=== PATIENT | female | born 1940 | race African-American/Black ===

== ENCOUNTER 2019-03-28 13:30 | Inpatient (IN) ==
[2019-03-28] MEDS ORDERED: ZOFRAN IV PRN (18:13)
[2019-03-28] MEDS ORDERED: ROCEPHIN 2 GM in NS 50 ML IV ONE (18:20)
[2019-03-28] MEDS ORDERED: VANCOMYCIN IV PER PHARMACY MISC SCH (18:30)
[2019-03-28] MEDS ORDERED: OFIRMEV 1000 MG/ISOTONIC SOLN 1,000 MG/100 ML BOTTLE IV PRN (18:37)
[2019-03-28] MEDS: SOLU-MEDROL IV SCH (18:48)
[2019-03-28 19:42] LABS: BASO# 0.11 X1000 (0.0-0.2); BASO% 0.5 % (0.0-0.8); EOS# 0.11 X1000 (0.0-0.7); EOS% 0.5 % (0.0-10.0); HEMATOCRIT 26.7 % (37.0-47.0); HEMOGLOBIN 8.5 g/dL (12.0-16.0); IMM GRAN% 0.9 % (0.0-0.5); LYMPH# 2.21 X1000 (1.2-3.4); LYMPH% 10.1 % (20.5-51.1); MCH 30.2 PG (27-31); MCHC 31.8 g/dL (33-37); MONO# 2.25 X1000 (0.11-0.59); MONO% 10.3 % (1.7-9.3); MPV 10.6 FL (7.4-10.4); NEUT# 17.01 X1000 (1.4-6.5); NEUT% 77.7 % (42.2-75.2); PLT 459 X1000 (130-400); RBC 2.81 XMIL (4.2-5.4); RDW 16.1 % (11.5-14.5); WBC 21.89 X1000 (4.8-10.8)
[2019-03-28 19:51] LABS: BANDS 1 % (0-1); EOS 2 % (1-10); LARGE PLATELETS OCCASIONAL; LYMPHS 6 % (21-51); MONO 5 % (1-9); SEGS 85 % (42-75); TARGET CELLS OCCASIONAL
[2019-03-28 20:19] LABS: AGAP 9; BUN 12 mg/dL (8-22); CALCIUM 8.4 mg/dL (8.8-10.2); CHLORIDE 97 mmol/L (98-107); COSMO 286; CREATININE 0.6 mg/dL (0.5-0.9); ESTIMATED GFR > 60; GLUCOSE 197 mg/dL (70-104); POTASSIUM 4.6 mmol/L (3.5-5.1); SODIUM 141 mmol/L (136-145); TCO2 35 mmol/L (25-35)
[2019-03-28 20:40] LABS: SED RATE 74 mm/hr (0-20)
[2019-03-28] MEDS ORDERED: XARELTO PO SCH (21:00)
[2019-03-28] MEDS: NEURONTIN PO SCH (21:58)
[2019-03-28] MEDS ORDERED: VANCOMYCIN 1,200 MG in NS 250 ML IV ONE (22:00)
--- NOTE | 2019-03-28 22:16 | Diag Imaging Result Doc PS360 ---
CT ABDOMEN/PELVIS W/WO CONTRAS - 03/28/2019 INDICATION: right side abdome pain. r/o kidney stones vs pyelo COMPARISON: 09/10/2018 FINDINGS: There is severe consolidation of the right lower lobe. There is a small infiltrate in the right middle lobe and left lower lobe. There is a small right pleural effusion. Heart size is grossly normal. No radiodense renal stones or urinary obstruction. There are severe diffuse parenchymal calcifications of the pancreas indicating severe chronic pancreatitis. There is also severe dilation of the main pancreatic duct containing numerous stones. There is moderate constipation. There is severe diverticulosis of the colon. No bowel obstruction or inflammation. Shoemaker catheter in the urinary bladder. Rectum is normal. There are some calcified degenerating fibroids in the uterus. There are moderate degenerative changes of the spine. No acute or suspicious bony lesion. IMPRESSION: 1. Severe chronic pancreatitis. 2. Constipation. Severe diverticulosis coli. 3. Bibasilar infiltrates. Small right pleural effusion. This exam was performed using automated exposure control, adjustment of mA or kV according to patient size, and/or use of iterative reconstruction technique Electronically signed by Jordan Solano 03/28/2019 10:13 PM
--- NOTE | 2019-03-28 22:19 | Diag Imaging Result Doc PS360 ---
CT ANGIOGRAM HEAD - 03/28/2019 INDICATION: persistent headache. R/o Aneurysm TECHNIQUE: Axial CT images were obtained after administering intravenous contrast. Three-dimensional angiographic images were generated. COMPARISON: Head CT 03/26/2019 FINDINGS: There is extremely severe vascular calcification of the carotid siphons bilaterally. This causes moderate stenosis bilaterally, narrowed by about 50%. No aneurysm. No intracranial hemorrhage. The cerebral and cerebellar arteries appear normal. No significant vascular calcification here. The vertebrobasilar system is normal. IMPRESSION: Severe vascular calcification of the carotid siphons bilaterally with moderate stenosis. No aneurysm or acute abnormality. This exam was performed using automated exposure control, adjustment of mA or kV according to patient size, and/or use of iterative reconstruction technique Electronically signed by Jordan Solano 03/28/2019 10:17 PM
--- NOTE | 2019-03-28 23:50 | HISTORY AND PHYSICAL ---
PRESENTING COMPLAINT: Headaches. HISTORY OF PRESENTING COMPLAINT: Ms. Novoa is a 78-year-old female who is known to have a history of COPD, on home oxygen 3 L. She normally follows up with Dr. Gilbert. She does not follow up with any foreign exchange services manager. She is also known to have congestive heart failure. Ms. Novoa was admitted to [facility] on 03/20/2019, mainly because of shortness of breath, congestion and some urinary symptoms and weakness. She was found to be in COPD exacerbation, and she was admitted and started on standard of care. Per documentation from [facility], she was initially started on IV antibiotics, steroids and hydration. Subsequently, imaging studies were done including a CAT scan of the lungs, showing pneumonia. At the same time there was mention of a right lower lobe PE. A CAT scan of the head showed chronic maxillary and sphenoid sinusitis. During the hospital course at [facility], the sputum came back positive for MRSA. She was treated with vancomycin for MRSA sinusitis, MRSA pneumonia and PE. I understand she was doing a little better until 2 days later. She started having remarkable headaches to where the attending physician over there, Dr. Hills, was concerned that this could be meningitis; however, because she was started on an anticoagulant he was not comfortable taking care of her at that facility, so he decided to transfer her for higher level of care. PAST MEDICAL HISTORY: 1. COPD, on home oxygen. 2. Congestive heart failure. PAST SURGICAL HISTORY: Left total knee replacement. FAMILY HISTORY: Unremarkable. SOCIAL HISTORY: The patient is . She quit smoking about 6 years ago, but she smoked for more than 40 years. She denies any alcohol or street drug use. The patient lives with her daughter and has a very good support system. REVIEW OF SYSTEMS: At this point Ms. Novoa complains of some mild shortness of breath and headaches. Ms. Novoa refers that she has been having headaches for a very long time. Usually she gets 1 episode on daily basis, occasionally 2. Usually it will subside with Tylenol or when she goes to rest. She refers that the headache is usually frontal in location and is pounding. It is usually associated with nauseation and phonophobia with photophobia. She denies any chest pain. She denies any diarrhea. She denies any urinary symptoms at this point. PHYSICAL EXAMINATION: VITAL SIGNS: Her current vital signs have still not been done at the time of dictation. She, however, looks very stable in bed. GENERAL: Ms. Novoa is a 78-year-old elderly female. She is in bed. She does not seem to be in any cardiopulmonary distress. She is still on nasal cannula for supplemental oxygen. HEENT: Mucosa is pink and moist. Anicteric. Acyanotic. Head was normocephalic and it was atraumatic. NECK: Supple. There is no neck rigidity. There is no JVD. RESPIRATORY: There is good air entry bilaterally. There is some faint distant wheezing, but no crackles and no rhonchi. There is no accessory muscle use. CARDIOVASCULAR: Regular rate and rhythm. No murmurs, no rubs, no gallops. Eden beat is at 5th intercostal space, midclavicular line. GASTROINTESTINAL: Abdomen is soft. There is some tenderness mainly to the right upper quadrant and epigastrium and the right flank. There is no rebound or guarding. There is no rebound tenderness. There is minimum guarding. Bowel sounds are present but there is no hepatosplenomegaly. I did not see any scars on the anterior abdominal wall. EXTREMITIES: No pedal edema. Distal pulses are present. GENITOURINARY: There is a Shoemaker catheter in place. CENTRAL NERVOUS SYSTEM: The patient is awake, alert and oriented x4. She is able to move both lower extremities against gravity, but she is remarkably weak. Sensation seems to be intact. She has some atrophy and some tenderness mobilizing the knee joint from longstanding osteoarthritis. Her cranial nerves 2-12 have been grossly examined. They all seem to be intact. She has no teeth, but she is able to stick out her tongue and move the tongue in all directions. Her pupils are equal and they are reactive to light. I do not see any visual field defects. There is mild tenderness palpating the scalp on the frontal region. I do not think there was any remarkable tenderness over the trigeminal area. LABORATORY DATA: None at the time of dictation; however, a summary of the laboratory data from [facility] on 03/23 shows white cell count was about 18.84, hemoglobin was 8.8, platelet count was 460,000. The renal function test was normal. Creatinine was 0.7. Other electrolytes were all within normal range. The urinalysis was negative. Urine culture was negative. Stool analysis was negative. DIAGNOSTIC DATA: Imaging studies from the outside facility seem to suggest chronic maxillary and sphenoid sinusitis as well as mild PE, severe COPD and right upper lobe possible pneumonia. ASSESSMENT: Ms. Novoa, who was admitted to [facility] from the 16th of this month to present, being treated for pneumonia, sinusitis and pulmonary embolism, got worsening of chronic headache and there was concern of meningitis, so the patient was transferred here for higher level of care. 1. [id number] hypoxemic respiratory failure. This seems to have improved during the course at the other hospital. The patient is back on 3 L supplemental oxygen. She seems to be saturating well. 2. Methicillin-resistant Staphylococcus aureus sinusitis with pneumonia. The patient was treated with vancomycin. We are going to continue with that. 3. Pulmonary emboli. We will continue with her anticoagulant. Once her followup scans over here, especially the brain scans are negative. 4. Headaches. The patient seems to have chronic headaches, which some of the features seem to suggest migraine. Unfortunately it looks like this has gotten worse, so we are going to repeat a CAT scan with angiogram to rule out any aneurysm. We will get Neurology to evaluate her on Sunday. The patient does not seem to have any nuchal rigidity. She is not febrile. She does not have any altered mentation. I doubt if she does have meningitis, because she was actually being treated with antimicrobials which we are going to continue anyway. 5. Abdominal pain, more so to the right upper quadrant and with right costal angle tenderness. We will get a CAT scan of the abdomen to rule out any intra-abdominal pathology. 6. We will give further recommendations as results of laboratory data as well as imaging data become available. cc: Bernardo Cantrell MD
[2019-03-29] MEDS: TYLENOL PO PRN ×3 (00:27→11:52)
[2019-03-29] MEDS: SOLU-MEDROL IV SCH ×3 (03:57→22:16)
[2019-03-29 08:33] LABS: INR 1.38; PROTIME 17.3 Seconds (11.0-16.0)
[2019-03-29 08:41] LABS: BASO# 0.08 X1000 (0.0-0.2); BASO% 0.4 % (0.0-0.8); HEMOGLOBIN 9.6 g/dL (12.0-16.0); IMM GRAN# 0.17 X1000 (0.0-0.04); IMM GRAN% 0.9 % (0.0-0.5); LYMPH# 0.55 X1000 (1.2-3.4); LYMPH% 2.9 % (20.5-51.1); MCV 96.8 FL (81-99); MONO# 0.33 X1000 (0.11-0.59); MONO% 1.7 % (1.7-9.3); MPV 10.9 FL (7.4-10.4); NEUT# 18.01 X1000 (1.4-6.5); NEUT% 94.1 % (42.2-75.2); PLT 452 X1000 (130-400); RDW 16.8 % (11.5-14.5); WBC 19.14 X1000 (4.8-10.8)
[2019-03-29 09:18] LABS: ANISOCYTOSIS 2+; LYMPHS 3 % (21-51); MONO 2 % (1-9); SEGS 95 % (42-75)
[2019-03-29 09:19] LABS: LARGE PLATELETS 1+
[2019-03-29 09:20] LABS: AGAP 11; ALB/GLOB RATIO 0.7; ALBUMIN 2.4 g/dL (3.5-5.0); ALKALINE PHOSPHATASE 93 U/L (32-104); BUN 12 mg/dL (8-22); CALCIUM 8.6 mg/dL (8.8-10.2); CHLORIDE 100 mmol/L (98-107); COSMO 285; CREATININE 0.6 mg/dL (0.5-0.9); ESTIMATED GFR > 60; GLUCOSE 137 mg/dL (70-104); GOT 19 U/L (10-30); GPT 11 U/L (10-36); MAGNESIUM 1.6 mg/dL (1.5-2.7); POTASSIUM 5.8 mmol/L (3.5-5.1); SODIUM 142 mmol/L (136-145); TCO2 31 mmol/L (25-35); TOTAL BILIRUBIN 0.37 mg/dL (0.20-1.00); TOTAL PROTEIN 5.9 g/dL (6.3-8.3)
[2019-03-29] MEDS: CARDIZEM CD PO SCH (09:48)
[2019-03-29] MEDS: CRESTOR PO SCH (09:48)
[2019-03-29] MEDS: PERICOLACE PO SCH ×2 (09:48→22:17)
[2019-03-29] MEDS: ROCEPHIN 2 GM in NS 50 ML IV SCH (09:48)
[2019-03-29] MEDS: XARELTO PO SCH ×2 (09:49→22:17)
[2019-03-29] MEDS ORDERED: ALBUTEROL 0.5% INH CONC FOR HYPERKALEMIA INH ONE (09:58)
[2019-03-29] MEDS ORDERED: LOKELMA POWDER PACKET PO ONE (09:59)
[2019-03-29] MEDS: CREON PO SCH ×2 (11:52→16:30)
--- NOTE | 2019-03-29 12:01 | PROGRESS NOTE ---
DATE: 03/29/2019 SUBJECTIVE: This morning Ms. Novoa refers to be doing a lot better. She says she has just had minimum headache. She had very good sleep and she ate well last night. Her son was at the bedside at the time of the encounter. OBJECTIVE: Vital signs: Blood pressure is 136/73, pulse of 77, respiration is 19, temperature 98.9 degrees. Patient is saturating 97%. General: Ms. Novoa is a 78-year-old elderly female. She is in bed, no distress. HEENT: Mucosa is pink and moist. Anicteric. Acyanotic. Neck: Supple. No JVD. Respiratory System: There is good air entry bilateral. I did not hear any wheezing today. No crackles. Cardiovascular: Regular rate and rhythm. No murmurs, no rubs, no gallops. GI: Abdomen is soft, minimally tender in the mid epigastrium but otherwise no rebound, no guarding. There is no hepatosplenomegaly. Extremities: No pedal edema. BRICK EXTRUDER OPERATOR: Patient is awake, alert, and oriented. There is no focal deficit. No nuchal rigidity. LABORATORY DATA: Still pending at the time of the dictation. Patient's C-reactive protein was elevated as well as her ESR was elevated yesterday. MEDICATIONS: Have all been reviewed. A CTA which was done yesterday shows severe vascular calcification of the carotid siphons bilaterally with moderate stenosis, but there is no aneurysm or acute abnormality. A CT scan of the abdomen and pelvis shows severe chronic pancreatitis, constipation, severe diverticulosis, bibasilar infiltrate, small right pleural effusion. ASSESSMENT: 1. Acute on chronic hypoxemic respiratory failure improved. 2. MRSA pneumonia. The patient continues to be on vancomycin. 3. Maxillary and sphenoid sinusitis. We will continue with the current antimicrobial coverage. 4. Pulmonary emboli. We started the patient on her Xarelto. 5. Headaches, questionable migraine with unremarkable CT scan. Patient will undergo an MRI on Sunday and also get Neurology to evaluate her. 6. Abdominal pain, most likely a combination of severe constipation and chronic pancreatitis. 7. Severe chronic pancreatitis on imaging. The patient also refers to have chronic diarrhea with 4 bowel movements on almost a daily basis, occasionally is normal, sometimes diarrhea. She did have extensive history of alcohol use in the past, but stopped alcohol use 6 years ago. We presume the chronic pancreatitis is alcohol induced. The patient will be started on Creon. 8. Severe constipation. We will start the patient on bowel regimen. 9. Bilateral carotid stenosis. As per the CTA of the head this seems to be severe. We will get ultrasound of the carotids and then go from there. I will also start the patient on statin and aspirin. cc: Bernardo Cantrell MD
[2019-03-29] MEDS ORDERED: MILK OF MAGNESIA PO ONE (14:53)
[2019-03-29] MEDS: NEURONTIN PO SCH (22:16)
[2019-03-30] MEDS: SOLU-MEDROL IV SCH ×2 (03:27→13:47)
[2019-03-30 07:33] LABS: BASO# 0.02 X1000 (0.0-0.2); BASO% 0.1 % (0.0-0.8); HEMATOCRIT 26.1 % (37.0-47.0); HEMOGLOBIN 8.2 g/dL (12.0-16.0); IMM GRAN# 0.13 X1000 (0.0-0.04); IMM GRAN% 0.5 % (0.0-0.5); LYMPH# 0.64 X1000 (1.2-3.4); LYMPH% 2.3 % (20.5-51.1); MCH 29.7 PG (27-31); MCHC 31.4 g/dL (33-37); MCV 94.6 FL (81-99); MONO# 0.96 X1000 (0.11-0.59); MONO% 3.4 % (1.7-9.3); MPV 10.9 FL (7.4-10.4); NEUT# 26.41 X1000 (1.4-6.5); NEUT% 93.7 % (42.2-75.2); PLT 537 X1000 (130-400); RBC 2.76 XMIL (4.2-5.4); RDW 16.5 % (11.5-14.5); WBC 28.16 X1000 (4.8-10.8)
[2019-03-30] MEDS: TYLENOL PO PRN (07:39)
[2019-03-30 08:08] LABS: AGAP 10; ALBUMIN 2.3 g/dL (3.5-5.0); BUN 25 mg/dL (8-22); CALCIUM 8.7 mg/dL (8.8-10.2); CHLORIDE 97 mmol/L (98-107); COSMO 292; CREATININE 0.7 mg/dL (0.5-0.9); ESTIMATED GFR > 60; GLUCOSE 211 mg/dL (70-104); MAGNESIUM 2.2 mg/dL (1.5-2.7); PHOSPHORUS 2.8 mg/dL (2.7-4.5); POTASSIUM 4.7 mmol/L (3.5-5.1); SODIUM 141 mmol/L (136-145); TCO2 34 mmol/L (25-35)
[2019-03-30] MEDS: CARDIZEM CD PO SCH (08:41)
[2019-03-30] MEDS: CREON PO SCH ×3 (08:41→17:25)
[2019-03-30] MEDS: ROCEPHIN 2 GM in NS 50 ML IV SCH (08:41)
[2019-03-30] MEDS: PERICOLACE PO SCH ×2 (08:41→20:18)
[2019-03-30] MEDS: XARELTO PO SCH ×2 (08:41→20:18)
[2019-03-30] MEDS: CRESTOR PO SCH (08:41)
[2019-03-30] MEDS: LACTULOSE PO SCH ×2 (11:05→20:17)
[2019-03-30] MEDS: VANCOMYCIN 1 GM/NS 1 GM/250 ML IVPB IV SCH (11:05)
--- NOTE | 2019-03-30 11:13 | PROGRESS NOTE ---
DATE: 03/30/2019 SUBJECTIVE: This morning, Ms. Novoa refers to be doing okay. Still has ongoing headache, which is on and off. However, she says she slept pretty well last night. Ms. Novoa also continues to complain of abdominal pain and has not had a bowel movement. She said her back is also hurting her. OBJECTIVE: Vital Signs: Blood pressure is 116/50, pulse of 84, respirations are 20, temperature is 98.5 degrees, the patient is saturating 94%. General Examination: Ms. Novoa is a 78-year- old, -Citizen Of [place] female. She is in bed. No cardiopulmonary distress. HEENT: Mucosa is pink and moist. Anicteric. Acyanotic. Neck: Supple. Chest: There is good air entry bilaterally. No crepitations. No rhonchi. Cardiovascular: Regular rate and rhythm. No murmurs, no rubs, no gallops. GI: Abdomen was soft. Minimally tender in the lower abdomen but no guarding, no rebound. Extremities: No pedal edema. SECURITY REPRESENTATIVE: The patient is awake, alert, and oriented. There was no focal deficit. The patient has no nuchal rigidity. Musculoskeletal: The patient has mild tenderness around the paraspinal muscles on the lumbar spine. Laboratory Data: WBC is 28.16, hemoglobin is 8.3, platelet count of 537,000. Chemistry is also reviewed and, for the most part, unremarkable. Glucose is slightly elevated, I guess because of the steroids. ASSESSMENT: 1. Acute on chronic hypoxemic respiratory failure. This is improved. Patient is back to 2 L of supplemental oxygen. 2. Methicillin-resistant Staphylococcus aureus pneumonia with sinusitis. The patient is on vancomycin. 3. Pulmonary emboli. The patient is on Xarelto. 4. Persistent headaches with features suggestive of possible migraine. A CT scan of the brain with contrast was unremarkable. Patient is pending an MRI and a neurology evaluation. 5. Abdominal pain secondary to severe constipation and chronic pancreatitis. 6. Alcohol-induced chronic pancreatitis. The patient is on Creon. 7. Bilateral carotid stenosis as per CTA. Ultrasound of the carotids has been done. We are pending the results. 8. Diverticulosis found on imaging. PLAN: In general, Ms. Novoa refers to be doing fairly okay but still has some pains, especially in the abdomen. She has not had any bowel movement so we are going to address this with the regimen. We will go up today. We are pending an MRI of the brain tomorrow and neurology consult for the persistent headaches. cc: Bernardo Cantrell MD
[2019-03-30] MEDS: NEURONTIN PO SCH (20:18)
[2019-03-30] MEDS ORDERED: VANCOMYCIN 1 GM/NS 1 GM/250 ML IVPB IV SCH (22:00)
[2019-03-31 07:29] LABS: BASO# 0.02 X1000 (0.0-0.2); BASO% 0.1 % (0.0-0.8); HEMATOCRIT 25.8 % (37.0-47.0); IMM GRAN# 0.23 X1000 (0.0-0.04); IMM GRAN% 0.9 % (0.0-0.5); LYMPH# 1.08 X1000 (1.2-3.4); LYMPH% 4.3 % (20.5-51.1); MCH 29.7 PG (27-31); MCV 95.9 FL (81-99); MONO# 1.25 X1000 (0.11-0.59); NEUT# 22.61 X1000 (1.4-6.5); NEUT% 89.7 % (42.2-75.2); PLT 504 X1000 (130-400); RBC 2.69 XMIL (4.2-5.4); RDW 16.6 % (11.5-14.5); WBC 25.19 X1000 (4.8-10.8)
[2019-03-31 07:41] LABS: LYMPHS 10 % (21-51); MONO 4 % (1-9); SEGS 86 % (42-75)
[2019-03-31 07:49] LABS: AGAP 11; ALBUMIN 2.2 g/dL (3.5-5.0); BUN 23 mg/dL (8-22); CALCIUM 8.3 mg/dL (8.8-10.2); CHLORIDE 100 mmol/L (98-107); COSMO 292; CREATININE 0.7 mg/dL (0.5-0.9); ESTIMATED GFR > 60; GLUCOSE 192 mg/dL (70-104); PHOSPHORUS 2.6 mg/dL (2.7-4.5); POTASSIUM 3.3 mmol/L (3.5-5.1); SODIUM 142 mmol/L (136-145); TCO2 31 mmol/L (25-35)
[2019-03-31] MEDS: TYLENOL PO PRN ×2 (07:59→15:13)
[2019-03-31] MEDS: ROCEPHIN 2 GM in NS 50 ML IV SCH (07:59)
[2019-03-31] MEDS: SOLU-MEDROL IV SCH (08:00)
[2019-03-31] MEDS: CREON PO SCH ×3 (08:00→16:49)
[2019-03-31] MEDS: XARELTO PO SCH ×2 (08:00→21:24)
[2019-03-31] MEDS: CRESTOR PO SCH (08:00)
[2019-03-31] MEDS: LACTULOSE PO SCH ×2 (08:00→21:23)
[2019-03-31] MEDS: PERICOLACE PO SCH ×2 (08:01→21:24)
[2019-03-31] MEDS: CARDIZEM CD PO SCH (08:01)
[2019-03-31] MEDS: VANCOMYCIN 1 GM/NS 1 GM/250 ML IVPB IV SCH (09:01)
[2019-03-31] MEDS: NEURONTIN PO SCH ×2 (09:01→21:24)
[2019-03-31] MEDS ORDERED: POTASSIUM PHOSPHATE 40 MEQ in NS 250 ML IV ONE (09:04)
--- NOTE | 2019-03-31 13:29 | PROGRESS NOTE ---
DATE: 03/31/2019 SUBJECTIVE: Today, Ms. Novoa refers to be doing fairly okay. Denies any headaches. She did, however, say that her that her gallbladder seems to be acting up. She still has not had any documented bowel movement yet. OBJECTIVE: Vital Signs: Blood pressure is 134/65, pulse of 92, respirations 18, temperature 98.2 degrees, the patient is saturating 95%. General: Ms. Novoa is a 78-year-old, female. She is in bed. No distress. HEENT: Mucosa is pink and moist. Anicteric. Acyanotic. Neck: Supple. Chest: Good air entry bilaterally. There were no crepitations, no rhonchi. Cardiovascular: Regular rate and rhythm. GI: Abdomen is soft. It is minimally tender in the lower abdomen, but no rebound, no guarding. GROUND EQUIPMENT MECHANIC: The patient is awake, alert, and oriented. There is no focal deficit. There is no nuchal rigidity. LABORATORY DATA: WBC is down to 25.19, hemoglobin is 8.0, platelet count of 500,000. Chemistry is also reviewed. No changes. CURRENT MEDICATIONS: Include ceftriaxone and vancomycin. Steroids have been tapered off. ASSESSMENT: 1. Acute on chronic hypoxemic respiratory failure, improved. 2. Chronic obstructive pulmonary disease exacerbation. The patient is on standard of therapy. 3. Methicillin-resistant staphylococcus aureus pneumonia with sinusitis. The patient continues to be on vancomycin. 4. Pulmonary emboli. The patient is on Xarelto. 5. Persistent headache with features suggestive of migraine. Initial CT scan of the brain was unremarkable. MRI is pending, as well as Neurology consult. 6. Abdominal pain secondary to severe constipation and chronic pancreatitis. The patient has been started on bowel regimen. 7. Alcohol-induced chronic pancreatitis. The patient is on Creon. 8. Bilateral carotid stenosis as per CTA. Carotid ultrasound has been ordered. We are pending the results. 9. Diverticulosis found on imaging. In general, I think Ms. Novoa is doing well. She is pending an MRI of the brain today, as well as Neurology consult. We are going to continue addressing her bowel regimen, and re-evaluate her in the morning. We have asked Physical Therapy to start working with her. cc: Bernardo Cantrell MD
--- NOTE | 2019-03-31 20:56 | NEUROLOGY CONSULTATION ---
DATE: 03/31/2019 REASON FOR CONSULT: Chronic headache. HISTORY OF PRESENT ILLNESS: This is a 78-year-old female who was admitted 03/28/2019 after a hospital transfer from [facility], where she was admitted on 03/20/2027. She was being treated for COPD exacerbation, pneumonia, and PE. She was complaining there of headache and there was concern that perhaps she could have meningitis; therefore, she was transferred to [facility]. On arrival, it was felt that meningitis was unlikely given lack of clinical findings, and also she had been on antibiotics and was still on them. Ms. Novoa reported actually that she had been having this headache for 7 months. To me, she tells me they started 7 months ago after she fell, hitting her head. She has a sore spot in the middle of her forehead and there is pain that radiates across her forehead that is stabbing in nature. There is no sensitivity to light, sound. No nausea or vomiting. Typically, the headaches can come on any time of day, including waking up in the morning with them, starting midday or starting in the evening. She typically has a daily headache; however, she does have headache- free time. She takes Tylenol with some frequency, it sounds like several times a week, maybe not daily. She also has a pain medication that she says she receives for her knee that she will occasionally use for her headache. The headache typically resolves when she takes either of these medications. There are no other neurologic symptoms, no focal feature, no visual change. The headache she has now is the same as it has been. Before 7 months ago, she had occasional similar headache. She cannot tell me any obvious associations, any aggravating factors. Blood pressure on arrival was 140/62. The patient had a CTA of the head that did not show evidence of aneurysm, but did show severe vascular calcification in the carotid siphons bilaterally. She has not taken other medication for headache in the past. PAST MEDICAL HISTORY: 1. COPD, on home oxygen. 2. Congestive heart failure. 3. Total knee replacement. FAMILY HISTORY: Noncontributory. SOCIAL HISTORY: Previous smoker. No alcohol or illicits. ALLERGIES: No known drug allergies listed. MEDICATIONS: Current and reviewed in the chart. I see Neurontin 100 mg p.o. b.i.d. REVIEW OF SYSTEMS: Balance of 12 conducted and otherwise negative except that detailed in the HPI. PHYSICAL EXAMINATION: Vital Signs: Afebrile, blood pressure generally 110s to 140 systolic, pulse 92. Neurologic: Ms. Novoa is supine in bed with head of bed elevated. She is awake, alert, and oriented. No language disturbance on brief bedside testing. She is attentive and spontaneous. No dysarthria. Follows simple commands consistently. Pupils equal, round, and reactive to bright light. I believe there is cataract visible in the right eye. Gaze conjugate. Ocular movements full. Visual gray intact to direct confrontational testing. Face symmetric with equal activation. Facial sensation reported intact. Tongue is midline. Palate elevates symmetrically. Shoulder shrug is full. Tone is equal in the limbs. Power is symmetric in the limbs, generally 4/5. Some of this is pain related; all seems symmetric. Reflexes were trace at the wrists, diminished at the ankles bilaterally. No clonus. Plantar response is downgoing. [id number] intact. Rapid alternating movements slowed bilaterally, but symmetric. I did not test her gait. DIAGNOSTICS: CTA of the head: No aneurysm or acute abnormality. There is severe vascular calcification of the carotid siphons bilaterally with moderate stenosis. LABS: Reviewed in the chart. White count of 25. BUN 23, creatinine 0.7. ASSESSMENT AND PLAN: This sounds most consistent with chronic daily headache which could be on the basis of chronic tension type headache, or medication overuse headache. I agree with contrasted MRI of the brain. Given the possibility that this could be medication overuse, it would be reasonable for the patient to discontinue the use of Tylenol to see if her headache improves with time. Short term symptomatic therapy with nonsteroidal anti- inflammatory medications could be tried, but unfortunately though, she and her son tell me that she is unable to take nonsteroidal anti-inflammatory medications. I am not sure of the reasoning. Another option would be to attempt a trial of higher dose of the gabapentin that she is already on to see if she may get some benefit from this without too much sedation. Lastly, a very cautious trial with low dose amitriptyline at night could be considered temporarily with close followup. Thank you for the consultation. cc: MD JOSSELYN Sharp
[2019-04-01 07:51] LABS: HEMATOCRIT 26.9 % (37.0-47.0); HEMOGLOBIN 8.7 g/dL (12.0-16.0); MCH 31.5 PG (27-31); MCHC 32.3 g/dL (33-37); MCV 97.5 FL (81-99); MPV 10.8 FL (7.4-10.4); RBC 2.76 XMIL (4.2-5.4); RDW 16.3 % (11.5-14.5); WBC 25.28 X1000 (4.8-10.8)
[2019-04-01] MEDS: CRESTOR PO SCH (08:06)
[2019-04-01] MEDS: NEURONTIN PO SCH ×2 (08:06→20:36)
[2019-04-01] MEDS: XARELTO PO SCH ×2 (08:06→20:37)
[2019-04-01] MEDS: CARDIZEM CD PO SCH (08:06)
[2019-04-01] MEDS: SOLU-MEDROL IV SCH (08:06)
[2019-04-01] MEDS: PERICOLACE PO SCH ×2 (08:06→20:37)
[2019-04-01] MEDS: LACTULOSE PO SCH (08:07)
[2019-04-01] MEDS: ROCEPHIN 2 GM in NS 50 ML IV SCH (08:14)
[2019-04-01] MEDS: CREON PO SCH ×3 (08:14→17:37)
[2019-04-01 08:39] LABS: AGAP 11; ALBUMIN 2.3 g/dL (3.5-5.0); BUN 21 mg/dL (8-22); CALCIUM 8.3 mg/dL (8.8-10.2); CHLORIDE 102 mmol/L (98-107); COSMO 292; CREATININE 0.7 mg/dL (0.5-0.9); ESTIMATED GFR > 60; GLUCOSE 179 mg/dL (70-104); PHOSPHORUS 3.1 mg/dL (2.7-4.5); POTASSIUM 3.9 mmol/L (3.5-5.1); SODIUM 143 mmol/L (136-145); TCO2 30 mmol/L (25-35)
--- NOTE | 2019-04-01 10:25 | Diag Imaging Result Doc PS360 ---
EXAM: MRI BRAIN W/O CONTRAST HISTORY: persistent headache TECHNIQUE: MRI brain without contrast. Axial, sagittal, and coronal images obtained in multiple sequences. COMPARISON: None. FINDINGS: Questionable tiny area of increased signal superiorly in the left parietal lobe on the diffusion images. This is seen on only one image. There are only minimal chronic microvascular ischemic changes although there is atrophy. No mass or midline shift. No hydrocephalus. No epidural or subdural fluid collection. Normal orbits. No sinus opacification or air-fluid levels. IMPRESSION: 1.Atrophy with minimal chronic microvascular ischemic changes 2.Questionable tiny recent lacunar infarct in the superior left parietal lobe Electronically signed by Ryan Buckner 04/01/2019 10:22 AM
[2019-04-01] MEDS: VANCOMYCIN 1 GM/NS 1 GM/250 ML IVPB IV SCH (11:04)
--- NOTE | 2019-04-01 15:12 | PROGRESS NOTE ---
DATE: 04/01/2019 SUBJECTIVE: This morning Ms. Novoa was actually seen sitting up in a chair in her room. She referred to be doing a lot better. She said the headache has significantly improved, and she is not throwing up. She says she has had 2 bowel movements yesterday, and the abdomen feels a lot better. OBJECTIVE: Vital signs: Blood pressure 131/57, pulse 104, respirations 19, and temperature 98.1. General: Ms. Novoa is a 78-year-old female. She was sitting up in a chair in no distress. HEENT: Mucosa was pink and moist. Anicteric. Acyanotic. Neck: Supple. No JVD and no nuchal rigidity. Chest: Clear to auscultation. Cardiovascular: Regular rate and rhythm. GI: Abdomen was soft. Minimally tender in the lower abdomen but no rebound. No guarding. MRI SUPERVISOR: Patient was awake, alert, and oriented. No focal deficit. LABORATORY DATA: WBC 25.28, hemoglobin is 8.7, and platelet count of 505,000. Chemistry is completely within normal range. So far, blood cultures were not done. ASSESSMENT: 1. Acute on chronic hypoxemic respiratory failure improved. 2. COPD exacerbation improved. 3. MRSA pneumonia with sinusitis. The patient is on vancomycin. She seems to be doing a lot better. We are going to transition this to p.o. Zyvox whenever she is ready to be discharged. 4. Pulmonary emboli. Patient is on Xarelto. 5. Persistent headaches. The patient has been evaluated by Neurology. They think this is a chronic headache as a result of tension versus medication use. We are going to continue following their recommendations. 6. Severe constipation, improved. 7. History of chronic pancreatitis from previous alcohol use and abuse. 8. Bilateral carotid stenosis as per CTA. Ultrasound of the neck has been done and waiting on the report. 9. Diverticulosis found on imaging. cc: Bernardo Cantrell MD MTDD
--- NOTE | 2019-04-01 20:16 | NEUROLOGY PROGRESS NOTE ---
DATE: 04/01/2019 SUBJECTIVE: No major overnight events. The patient says her headache feels better today. She has no major complaints currently. OBJECTIVE: Vital signs: She remains afebrile. Blood pressure 131/57, pulse 104, respirations 19, 94% on nasal cannula. Ms. Novoa is supine in bed with head of bed elevated. She is awake, alert, and oriented. She is cheerful, very pleasant, appropriate, and spontaneous. No language disturbance. Pupils are equal. Gaze is conjugate. Ocular movements are full. Face symmetric with equal activation. She moves all extremities equally and spontaneously without obvious focal deficit. There is not meningismus. DIAGNOSTIC DATA: MRI of the brain, noncontrast, was personally reviewed. Impression was atrophy with minimal chronic microvascular ischemic change and questionable tiny recent lacunar infarct in the superior left parietal lobe that was seen only on one image. I personally reviewed the MRI and did not appreciate any areas of acute ischemic change. I subsequently went down to Radiology to review with the radiologist, and he too did not appreciate any areas of acute ischemic change. Labs were reviewed in the chart. White count slightly increased. ASSESSMENT/PLAN: Again, sounds most consistent with chronic daily headache. If further symptoms arise or if she does not have improvement soon with her headache, then I would suggest a repeat MRI with contrast as previously recommended for further evaluation. She has had reported significant weight loss of uncertain etiology, and I would recommend evaluation of that as well. We would be happy to see her in the clinic for followup of her headache if she would like. Otherwise, no further suggestions to add from yesterday. cc: Kavitha Kiser MD
[2019-04-02 07:59] LABS: HEMATOCRIT 27.3 % (37.0-47.0); HEMOGLOBIN 8.8 g/dL (12.0-16.0); MCH 31.5 PG (27-31); MCHC 32.2 g/dL (33-37); MCV 97.8 FL (81-99); RBC 2.79 XMIL (4.2-5.4); RDW 16.2 % (11.5-14.5); WBC 26.45 X1000 (4.8-10.8)
[2019-04-02 08:08] LABS: AGAP 9; ALBUMIN 2.3 g/dL (3.5-5.0); BUN 20 mg/dL (8-22); CALCIUM 8.1 mg/dL (8.8-10.2); CHLORIDE 100 mmol/L (98-107); COSMO 288; CREATININE 0.6 mg/dL (0.5-0.9); ESTIMATED GFR > 60; GLUCOSE 206 mg/dL (70-104); POTASSIUM 3.7 mmol/L (3.5-5.1); SODIUM 140 mmol/L (136-145); TCO2 31 mmol/L (25-35)
[2019-04-02] MEDS: CREON PO SCH ×3 (08:24→17:04)
[2019-04-02] MEDS: XARELTO PO SCH ×2 (08:25→21:17)
[2019-04-02] MEDS: PERICOLACE PO SCH ×2 (08:26→21:17)
[2019-04-02] MEDS: PREDNISONE PO SCH (08:26)
[2019-04-02] MEDS: ROCEPHIN 2 GM in NS 50 ML IV SCH (08:26)
[2019-04-02] MEDS: NEURONTIN PO SCH ×2 (08:27→21:16)
[2019-04-02] MEDS: CRESTOR PO SCH (08:27)
[2019-04-02] MEDS: CARDIZEM CD PO SCH (08:27)
[2019-04-02] MEDS: TYLENOL PO PRN (08:27)
[2019-04-02] MEDS: VANCOMYCIN 1 GM/NS 1 GM/250 ML IVPB IV SCH (09:13)
--- NOTE | 2019-04-02 11:11 | NEUROLOGY PROGRESS NOTE ---
DATE: 04/02/2019 LOCATION: Room 308. SUBJECTIVE: Dr. Kiser saw Ms. Novoa for Neurology consultation. She presented with headache and gave history consistent with chronic daily headache syndrome. Headache has been much improved in recent days. This morning, she told me she had some headache overnight or early this morning, but she is not having headache at the time of my visit. Systolic blood pressures were 90s to 150s in the first few days this admission, but 120s to 140s in recent days. I encouraged her to continue managing blood pressure, to take her medicines correctly, to be careful with analgesics and other abortive medicine for headache management. I offered to see her as an outpatient if headache persists after discharge. Thank you for asking Neurology to see Ms. Novoa. cc: MD JOSSELYN Snell III
--- NOTE | 2019-04-02 17:44 | PROGRESS NOTE ---
DATE: 04/02/2019 SUBJECTIVE: This morning Ms. Novoa refers to be doing a lot better. Still has some mild headache, but not like before. No coughing. OBJECTIVE: Vital signs: Blood pressure is 139/66, pulse of 95, respirations 16, temperature is 99.3 degrees. General: Ms. Novoa is a 78-year-old female. She is in bed, no distress. HEENT: Mucosa is pink and moist. Anicteric. Acyanotic. Neck: Neck is supple. Chest: Good air entry bilaterally. There were no crepitations and no rhonchi. Cardiovascular: Regular rate and rhythm. No murmurs. No rubs. No gallops. GI: Abdomen is soft, minimally tender. No rebound. No guarding. Extremities: No pedal edema. There is an old scar over the left knee from previous surgery. She shows obviously changes of osteoarthritis. FLOORPERSON: Patient is awake, alert, oriented. There is no focal deficit. No nuchal rigidity. LABORATORY DATA: WBC is 26.43, hemoglobin is 8.9, platelet count of 504,000. Chemistry is completely within normal range. Phosphorus is 2.0. ASSESSMENT: 1. Acute on chronic hypoxemic respiratory failure, improved. The patient is currently down to 2 L of nasal cannula and that is what she is normally uses at home and she is saturating 95%. 2. Chronic obstructive pulmonary disease exacerbation, improved. The patient does not sound bronchospastic this morning. She is still on antibiotics. She has been transitioned to oral steroids and bronchodilation. 3. Methicillin-resistant Staphylococcus aureus pneumonia with sinusitis. Ms. Novoa has a sputum culture from [facility] that was positive for MRSA. She is therefore being treated with IV vancomycin and we plan to treat her for a total of 10 to 14 days. She is currently on day 5 on IV vancomycin. She was on 3 more days of vancomycin at [facility] which makes it a total of 8 days. She will have 5 more days, which can be transitioned to p.o. Zyvox whenever she is ready to be discharged to the rehab. 4. Pulmonary emboli. Ms. Novoa has a CT scan also from [facility] that shows a small subsegmental PE on the right side. She was started on Xarelto. We plan to continue this at 15 mg for a total of 21 days, after which she will need to be transitioned to 20 mg once daily for the entire course of her treatment. 5. Persistent chronic headache syndrome. Ms. Novoa has been evaluated by Neurology. She had an MRI here which for the most part was unremarkable. Neurology plans to continue seeing her on an outpatient basis. She is on p.r.n. Tylenol and gabapentin. 6. Severe constipation, improved with bowel regimen. We will continue with the fiber and p.r.n. MiraLAX. 7. History of chronic pancreatitis from previous alcohol use and abuse. The patient does not use alcohol anymore. She has been started on Creon during the hospital course. 8. Bilateral carotid stenosis as per CT scan. Ultrasound of the neck has been done to determine the severity of the stenosis and recommend possible follow up with Vascular. We are still waiting on the report. 9. Diverticulosis on imaging, noted. PLAN: So in general, I think Ms. Novoa is doing much better. Headaches have significantly improved. She is not wheezing as before and her respiratory status has significantly improved. Ms. Novoa was transferred from [facility] after she presented with respiratory symptoms. A sputum culture did grow MRSA, so she is being treated for MRSA pneumonia and sinusitis. Headaches are improved and respiratory status is improved. Ms. Novoa is pending a rehab bed when available. She will need to follow up with Neurology for the management of the chronic headaches. cc: Bernardo Cantrell MD
--- NOTE | 2019-04-03 07:28 | Diag Imaging Result Doc PS360 ---
EXAM: CHEST-PORTABLE 04/03/2019 HISTORY: dyspnea TECHNIQUE: AP portable at 0612 COMMENT: There is hazy opacity in both lung bases particularly the right lower lobe. This was not the case on 08/01/2017. There are bilateral apical opacities which were apparently present previously. The heart size and pulmonary vascularity are within normal limits. IMPRESSION: Pulmonary edema and/or pneumonia. Right pleural effusion. Electronically signed by Sharath Zapata 04/03/2019 7:26 AM
[2019-04-03 08:09] LABS: BASO# 0.09 X1000 (0.0-0.2); BASO% 0.3 % (0.0-0.8); EOS# 0.05 X1000 (0.0-0.7); EOS% 0.2 % (0.0-10.0); HEMOGLOBIN 9.1 g/dL (12.0-16.0); IMM GRAN# 1.17 X1000 (0.0-0.04); IMM GRAN% 3.7 % (0.0-0.5); LYMPH# 2.57 X1000 (1.2-3.4); LYMPH% 8.2 % (20.5-51.1); MCH 30.6 PG (27-31); MCHC 31.4 g/dL (33-37); MCV 97.6 FL (81-99); MONO# 2.42 X1000 (0.11-0.59); MONO% 7.7 % (1.7-9.3); NEUT# 25.05 X1000 (1.4-6.5); NEUT% 79.9 % (42.2-75.2); PLT 491 X1000 (130-400); RBC 2.97 XMIL (4.2-5.4); RDW 16.4 % (11.5-14.5); WBC 31.35 X1000 (4.8-10.8)
[2019-04-03 08:45] LABS: AGAP 9; ALBUMIN 2.3 g/dL (3.5-5.0); BUN 19 mg/dL (8-22); CALCIUM 8.5 mg/dL (8.8-10.2); CHLORIDE 100 mmol/L (98-107); COSMO 287; CREATININE 0.6 mg/dL (0.5-0.9); ESTIMATED GFR > 60; GLUCOSE 159 mg/dL (70-104); MAGNESIUM 1.8 mg/dL (1.5-2.7); POTASSIUM 4.1 mmol/L (3.5-5.1); SODIUM 141 mmol/L (136-145); TCO2 32 mmol/L (25-35)
[2019-04-03] MEDS: CREON PO SCH ×3 (08:55→16:01)
[2019-04-03] MEDS: XARELTO PO SCH ×2 (08:56→20:03)
[2019-04-03] MEDS: CARDIZEM CD PO SCH (08:56)
[2019-04-03] MEDS: PREDNISONE PO SCH (08:57)
[2019-04-03] MEDS: PERICOLACE PO SCH ×2 (08:57→20:03)
[2019-04-03] MEDS: ROCEPHIN 2 GM in NS 50 ML IV SCH (08:57)
[2019-04-03] MEDS: NEURONTIN PO SCH ×2 (08:58→20:03)
[2019-04-03] MEDS: CRESTOR PO SCH (08:58)
[2019-04-03] MEDS: VANCOMYCIN 1 GM/NS 1 GM/250 ML IVPB IV SCH (09:02)
[2019-04-03 10:22] LABS: LYMPHS 8 % (21-51); MONO 4 % (1-9); NRBC 1 % (0-0); SEGS 88 % (42-75)
--- NOTE | 2019-04-03 12:25 | PROGRESS NOTE ---
DATE: 04/03/2019 SUBJECTIVE: The patient seems to be doing better. She is complaining of some abdominal discomfort. No signs of rebound. She is having bowel movements. She has a positive sputum culture that showed MRSA. She has been on vancomycin. The sputum culture was taken on 03/21/2019 and reported on 03/24/2019. I do believe since then, she has been on vancomycin, which I will stop right now and put her on doxycycline which is also sensitive to this bacteria. She has some right small pulmonary edema and possible pneumonia in a patient with a history of chronic obstructive pulmonary disease and chronic hypoxemia, on home O2. I do believe she is doing fine otherwise. OBJECTIVE: Vital Signs: Temperature 98.3 degrees, pulse 96, respiratory rate 17, blood pressure 148/65, oxygen saturation 96 on 3 L of nasal cannula. HEENT: Head normocephalic. No trauma. PERRLA. Neck: Supple. No JVD. No masses. Central trachea. Chest: Clear to auscultation. Some crepitus in the right base. No rhonchi. Abdomen: Soft. Generalized tenderness to palpation minimally. No signs of peritoneal irritation. No rebound. Extremities: No edema, no clubbing, no cyanosis. Decreased muscle mass. Neurological Examination: She is awake, alert, oriented. No focal deficits but some generalized weakness. Laboratory: WBC 31.3, hemoglobin 9.1, hematocrit 29, platelets 491,000. Sodium 141, potassium 4.1, chloride 100, bicarbonate 32, BUN 19, creatinine 0.6, glucose 159, calcium 8.5. ASSESSMENT AND PLAN: 1. Acute on chronic hypoxemic respiratory failure. This is much better. We will continue with the same management. She is not complaining of shortness of breath or chest pain. She is on home oxygen. 2. Chronic obstructive pulmonary disease exacerbation, improved. I will decrease the dose of the steroids today from 20 of prednisone to 10, and hopefully, I will decrease that slowly afterwards. 3. Methicillin-resistant Staphylococcus aureus pneumonia with sinusitis. She feels better. I will stop the vancomycin, which I believe she has been using for around 10 days, and I will put her on doxycycline by mouth. 4. Pulmonary emboli. Ms. Novoa has a CT scan from [facility] that showed a small subsegmental pulmonary embolism on the right side. This patient has been started on Xarelto 50 mg for a total of 21 days and then she will take 20 mg daily. 5. Persistent chronic headache syndrome, evaluated by neurology which will follow as an outpatient. Continue with as needed medication. 6. Severe constipation, improved. Continue with the same management. 7. History of chronic pancreatitis from previous alcohol use and abuse. She is not drinking anymore. 8. Bilateral carotic stenosis as per CT scan. Ultrasound of the neck has been done, pending results. 9. Diverticulosis on images, noted. 10. Generalized weakness and physical deconditioning. This patient will go to a rehab center once we have a bed available. cc: Juan M Perez MD
[2019-04-03] MEDS: DOXYCYCLINE PO SCH (20:03)
[2019-04-04 08:02] LABS: HEMATOCRIT 31.6 % (37.0-47.0); MCH 31.2 PG (27-31); MCHC 31.6 g/dL (33-37); MCV 98.4 FL (81-99); MPV 10.7 FL (7.4-10.4); RBC 3.21 XMIL (4.2-5.4); RDW 16.9 % (11.5-14.5); WBC 26.44 X1000 (4.8-10.8)
[2019-04-04 08:42] LABS: AGAP 9; BUN 19 mg/dL (8-22); CALCIUM 8.3 mg/dL (8.8-10.2); CHLORIDE 104 mmol/L (98-107); COSMO 290; CREATININE 0.6 mg/dL (0.5-0.9); ESTIMATED GFR > 60; GLUCOSE 116 mg/dL (70-104); MAGNESIUM 1.6 mg/dL (1.5-2.7); PHOSPHORUS 2.3 mg/dL (2.7-4.5); POTASSIUM 4.1 mmol/L (3.5-5.1); SODIUM 144 mmol/L (136-145); TCO2 31 mmol/L (25-35)
[2019-04-04] MEDS ORDERED: PREDNISONE PO SCH (09:00)
[2019-04-04] MEDS: CREON PO SCH (09:14)
[2019-04-04] MEDS: XARELTO PO SCH (09:14)
[2019-04-04] MEDS: ROCEPHIN 2 GM in NS 50 ML IV SCH (09:14)
[2019-04-04] MEDS: PERICOLACE PO SCH (09:14)
[2019-04-04] MEDS: DOXYCYCLINE PO SCH (09:14)
[2019-04-04] MEDS: CRESTOR PO SCH (09:14)
[2019-04-04] MEDS: CARDIZEM CD PO SCH (09:14)
[2019-04-04] MEDS: NEURONTIN PO SCH (09:16)
--- NOTE | 2019-04-04 11:30 | DISCHARGE SUMMARY ---
ADMISSION DATE: 03/28/2019 DISCHARGE DATE: 04/04/2019 ADMISSION DIAGNOSES: 1. Acute on chronic hypoxemic respiratory failure. 2. Methicillin-resistant Staphylococcus aureus (MRSA) sinusitis with pneumonia. 3. Pulmonary emboli. 4. Headaches. 5. Abdominal pain. DISCHARGE DIAGNOSES: 1. Acute on chronic hypoxemic respiratory failure, much better. 2. Chronic obstructive pulmonary disease exacerbation, improved. 3. Methicillin-resistant Staphylococcus aureus (MRSA) pneumonia and sinusitis, 10 days of IV vancomycin and now is changed to p.o. doxycycline. 4. Pulmonary emboli, on Xarelto. 5. Persistent chronic headache syndrome. 6. Severe constipation, improved. 7. History of chronic pancreatitis from a previous alcohol use and abuse. 8. Bilateral carotid stenosis per CT scan. 9. Diverticulosis, stable. 10. Generalized weakness and physical deconditioning. CONSULTATIONS: Dr. Ceron for the chronic headache, who saw her on the and felt like it was chronic tension type headache or medication overuse headache. SURGERIES AND PROCEDURES: None. HOSPITAL COURSE: Ms. Novoa is a 78-year-old -[place] female with a history of chronic obstructive pulmonary disease on home oxygen 3 L. She was originally admitted at [facility] on 20 of March for chronic obstructive pulmonary disease exacerbation and started on IV antibiotic steroids, hydration. She was found to also have pneumonia there but also found to have a right lower lobe pulmonary emboli along with chronic maxillary and sphenoid sinusitis. Sputum there also came back as methicillin-resistant Staphylococcus aureus (MRSA) positive. She was treated with vancomycin IV and blood thinners, I believe it was Xarelto. She was doing better until two days prior to admission when she started having severe headaches. Dr. Hills felt like there was possibly a meningitis and, due to the fact that she is on anticoagulant, he did not feel comfortable keeping her there for further treatment, so she was sent here for higher level of care. When she got here, we continued all treatments that were being performed there. We did consult Neurology, who felt like it was more of either a tension headache or a medication-induced headache due to overuse of medication. There was no true signs or symptoms of meningitis. There was no nuchal rigidity. She was not febrile. There was no altered mentation. It was noted that she was having some abdominal pain, so there was a CT scan performed that showed diverticulosis and severe chronic pancreatitis along with some constipation. For the headache workup, she had an MRI of the brain that just showed atrophy with minimal chronic microvascular ischemic changes. There was a questionable tiny recent lacunar infarct of the superior left parietal lobe. There were carotids that were performed. Constipation improved while she was there. Pancreatitis, there was no change with that. She did show bilateral carotid stenosis on the CTA. She was slowly decreased on oxygen. We had actually gotten her down to 2 L; however her home dosing I believe is 3 L. She was continued on Xarelto for the pulmonary emboli. She had p.r.n. Tylenol and Neurontin for the headaches. She was continued on fiber and MiraLAX for the constipation. She was started on Creon for the chronic pancreatitis. For the generalized weakness and physical deconditioning, she had physical therapy and she will go to rehab with physical therapy. DISCHARGE VITAL SIGNS: Temperature 98.4 degrees, heart rate 106, respiratory rate 17, blood pressure 134/68, O2 saturation 97% on room air. LABORATORY DATA: White blood cells 26,000, hemoglobin 10, hematocrit 31, platelet count 465,000. Sodium 144, potassium 4.1, BUN 19, creatinine 0.6, glucose 116, magnesium 1.6, albumin 2.3. MICROBIOLOGY: None. All the microbiology results were from [facility]. PERTINENT IMAGING: On 03/28/2019, head CTA with severe vascular calcification of the carotid siphons bilaterally with moderate stenosis, but no aneurysm. No acute findings. On 03/28/2019, abdominal and pelvic CT with chronic severe pancreatitis, constipation, severe diverticulosis, bibasilar infiltrates and a small right pleural effusion. On 03/30/2019, brain MRI shows atrophy with minimal chronic microvascular ischemic changes and a questionable tiny recent lacunar infarct in the superior left parietal lobe. On 04/03/2019, chest x-ray shows pulmonary edema and/or pneumonia with a right pleural effusion. No EKG but telemetry shows a sinus tach, actually it may be atrial fibrillation or sinus tach. It is difficult to determine. This is not a EKG. It is telemetry strips, tachycardic. There looks to be a P wave with each QRS, but there are some mild irregularities and that was from the . Imaging that is reported on the history and physical that was performed as an outpatient. She had a CTA of the lungs that showed pneumonia and a right lower lobe PE along with chronic maxillary and sphenoid sinusitis. DISCHARGE MEDICATIONS: 1. Creon 6000 units p.o. t.i.d. 2. Crestor 20 mg p.o. daily. 3. Doxycycline 100 mg p.o. twice daily for 4 more days. 4. Neurontin 100 mg p.o. twice daily. 5. [place] 5 mg 1 tablet p.o. every 6 hours p.r.n. 6. Kala Colace 1 tablet p.o. twice daily. 7. Prednisone taper. 8. Tylenol 650 mg p.o. every 6 hours p.r.n. 9. Xarelto 15 mg p.o. twice daily until 04/14/2019 and then 20 mg p.o. daily starting on 04/15/2019. 10. Diltiazem 240 mg p.o. daily. 11. Protonix 40 mg p.o. daily. PHYSICIAN FOLLOWUP: Dr. Ceron. DISCHARGE DIET: Regular diet with Ensure all meals. DISCHARGE ACTIVITY: As tolerated with physical therapy. DISCHARGE INSTRUCTIONS: Follow up with your primary doctor in 3 weeks, also with Dr. Ceron. Take all new medications as prescribed. For any new or worsening symptoms, please seek medical attention. Currently you are going to be transferred to a rehab facility. DISCHARGE DISPOSITION: [facility]. Dictated by LEVI Steen for Juan M Peerz MD cc: LEVI Steen MD
[2019-04-04 12:48] VITALS: BP 151/74
--- NOTE | 2019-04-07 10:48 | Carotid Study ---
DATE: 03/29/2019 PROCEDURE: Bilateral duplex and color flow imaging of the carotid arteries performed using the [employer] vivid E9 ultrasound System with a 9L-D transducer. REFERRING PHYSICIAN: DR. Cantrell. INDICATIONS: Carotid bruit. A 78-year-old female. STENOGRAPHER: MAYA Vences. FINDINGS: The velocities in cm/sec of both carotid systems were reviewed. There was forward flow in the right vertebral artery. The right ICA/CCA ratio is 1.42 corresponding to 2% stenosis of 40 to 59 percent. The left vertebral artery had forward flow. The left ICA/CCA ratio was 0.73 corresponding 2% stenosis of 0 to 39 percent. INTERPRETATION: Mild to moderate atherosclerotic disease of the distal common and internal carotid arteries bilaterally without evidence of a hemodynamically significant lesion in either carotid system. cc: MD Bernardo Jenkins MD
== END 2019-04-04 15:53 | DRG 102 ==
LOC: DIRADM 13:30 → SUATTDRO 13:30 → 3N 15:42
PROVIDERS: ATTEND Internal Medicine